=== PATIENT | female | born 1975 | race Caucasian/White ===

== ENCOUNTER → 2022-01-22 13:10 | Outpatient (CLI) | payer MEDICARE, MEDICAID, SELFPAY ==
--- NOTE | ~2022-01-22 | XR_ITS ---
XR_CERV2-3V_CR DATE: 01/22/2022 14:39 INDICATION: Cervical radiculopathy TECHNIQUE: Standing AP, open-mouth, odontoid and lateral views COMPARISON: None FINDINGS: There is straightening of the cervical spine. C1 and C2 are normally aligned and the odontoid process is intact. No fracture or dislocation or lock ed facet or prevertebral soft tissue swelling. There is moderately severe loss of interspace height at C6-7. IMPRESSION: Moderately severe degenerative disc disease at C6-C7 Straightening of the cervical spine Reviewed, dictated and finalized at [facility]. Reviewed, dictated and finalized at location A.
--- NOTE | ~2022-01-22 | XR_ITS ---
XR hip BI wo pelvis DATE: 01/22/2022 14:38 INDICATION: Hip pain TECHNIQUE: AP and lateral views of each hip COMPARISON: None FINDINGS: No fracture or dislocation, avascular necrosis or bone destruction of either hip. Joint spa zachariah are relatively preserved. The pubic symphysis and sacroiliac joints are intact. IMPRESSION: No significant abnormality of the hips Reviewed, dictated and finalized at location A.
--- NOTE | ~2022-01-22 | XR_ITS ---
XR thoracic spine 3V DATE: 01/22/2022 14:39 INDICATION: Thoracic back pain, radiculopathy TECHNIQUE: AP, lateral, swimmer views COMPARISON: None FINDINGS: Diffuse osteopenia. Minimal dextroscoliosis of the thoracic spine. There is mild to moderate degenerative spurring of the thoracic spine. No fracture or bone destruction. The thoracic pedicles are intact. No paraspinal soft tissue thickeni ng. IMPRESSION: Osteopenia Minimal dextro scoliosis Mild to moderate degenerative spurring Reviewed, dictated and finalized at location A.
--- NOTE | ~2022-01-22 | XR_ITS ---
XR knee LT 2V DATE: 01/22/2022 14:39 INDICATION: Left knee pain TECHNIQUE: Standing AP and lateral views COMPARISON: None FINDINGS: No fracture or dislocation or joint effusion. No periosteal reaction or bone destruction. Mild periarticular spurring of the patella. Joint spaces are relatively preserved. No radiopaque intr a-articular loose body or chondrocalcinosis. IMPRESSION: Mild patellofemoral osteoarthritis Reviewed, dictated and finalized at location A.
--- NOTE | ~2022-01-22 | XR_ITS ---
XR lumbar spine 2-3V DATE: 01/22/2022 14:39 INDICATION: Lumbar radiculopathy TECHNIQUE: AP, lateral, coned lateral lumbosacral views COMPARISON: None FINDINGS: No fracture or bone destruction. Included lower thoracic and lumbar pedicles are intact. Carmen mbar and lumbosacral interspaces appear well preserved. The sacroiliac joints appear normal. Status post cholecystectomy. IMPRESSION: No significant abnormality of lumbar spine Status post cholecystectomy Reviewed, dictated and finalized at location A.
--- NOTE | ~2022-01-22 | XR_ITS ---
XR knee RT 2V DATE: 01/22/2022 14:39 INDICATION: Right knee pain TECHNIQUE: Standing AP and lateral views COMPARISON: None FINDINGS: Diffuse osteopenia. No fracture or dislocation or joint effusion. No periosteal reaction or bone destruction. There is minimal periarticular spurring of the patella. Joint spaces are relatively preserved. Probable degenerative cyst of the medial aspect of the medial tibial plateau. No radiopaque intra-articular loose body or chondrocalcinosis. IMPRESSION: Mild osteoarthritis Osteopenia Reviewed, dictated and finalized at location A.
== END ==
PROVIDERS: PCP Internal Medicine Infectious Disease; Visit Provider Pain Medicine Interventional Pain Medicine
DX: M25.559 Pain in unspecified hip (principal); M25.569 Pain in unspecified knee; M54.17 Radiculopathy, lumbosacral region; M54.14 Radiculopathy, thoracic region; M54.12 Radiculopathy, cervical region; M17.0 Bilateral primary osteoarthritis of knee; M85.89 Other specified disorders of bone density and structure, multiple sites; M41.84 Other forms of scoliosis, thoracic region; M77.8 Other enthesopathies, not elsewhere classified; M50.323 Other cervical disc degeneration at C6-C7 level; M53.82 Other specified dorsopathies, cervical region; Z90.49 Acquired absence of other specified parts of digestive tract
CPT/HCPCS: 72040; 72072; 72100; 73521; 73560

== ENCOUNTER 2022-03-05 14:28 | Outpatient (CLI) | payer MEDICARE, MEDICAID, SELFPAY ==
--- NOTE | ~2022-03-05 | MR_ITS ---
EXAMINATION: MR lumbar spine wo con DATE: 03/05/2022 15:04 INDICATION: Lumbar radiculopathy. TECHNIQUE: Magnetic resonance imaging (MRI) of the lumbar spine was performed without intravenous con trast. Sequences included sagittal T2-weighted FSE, sagittal T2-weighted FS FSE, sagittal T1-weighted FSE, and axial T2-weighted FSE. COMPARISON: Lumbar spine MRI 01/13/2018 FINDINGS: There is 4 degrees dextrocurvature of thoracolumbar spine. Vertebral body heights are cristiano l. There is mildly decreased disc height at L4-L5. The distal spinal cord signal intensity is normal. The conus medullaris is at T12-L1. The following disc levels are specifically discussed: L1-L2: The disc does not extend beyond the endplate margin. There is mild bilateral facet joint osteo arthritis. There is no neural foraminal stenosis. There is no central canal stenosis. L2-L3: The disc does not extend beyond the endplate margin. There is mild bilateral facet joint osteo arthritis. There is no neural foraminal stenosis. There is no central canal stenosis. L3-L4: There is a left foraminal protrusion. There is mild bilateral facet joint osteoarthritis. Ther e is mild left neural foraminal stenosis. There is no central canal stenosis. L4-L5: The disc is bulging. There is mild bilateral facet joint osteoarthritis. There is mild bilater al neural foraminal stenosis. There is mild central canal stenosis. L5-S1: The disc does not extend beyond the endplate margins. There is severe right facet joint osteoa rthritis. There is no neural foraminal stenosis. There is no central canal stenosis. IMPRESSION: 1. Mild lumbar spondylosis, stable from 01/13/2018. Reviewed, dictated and finalized at location B.
== END 2022-03-05 14:29 | disposition home or self-care (01) ==
PROVIDERS: PCP Internal Medicine Infectious Disease; Visit Provider Pain Medicine Interventional Pain Medicine
DX: M47.22 Other spondylosis with radiculopathy, cervical region (principal); M17.9 Osteoarthritis of knee, unspecified; M16.9 Osteoarthritis of hip, unspecified; F41.1 Generalized anxiety disorder; G89.4 Chronic pain syndrome; E66.9 Obesity, unspecified; F31.62 Bipolar disorder, current episode mixed, moderate; M47.896 Other spondylosis, lumbar region
CPT/HCPCS: 72148

== ENCOUNTER → 2022-11-20 10:40 | Outpatient (CLI) | payer MEDICARE, MEDICAID, SELFPAY ==
--- NOTE | ~2022-11-20 | XR_ITS ---
EXAMINATION: XR lumbar spine 2-3V DATE: 11/20/2022 11:51 INDICATION: Lumbar radiculopathy TECHNIQUE: Anteroposterior and lateral views of the lumbar spine, and cone-down lateral view of the l umbosacral junction were obtained. COMPARISON: 01/22/2022 FINDINGS: Bone alignment is normal. There is no fracture. There is mild loss of intervertebral disc s pace height at L4-5 and L5-S1. There is severe facet joint osteoarthritis at L5-S1. Surgical clips in the right upper quadrant are likely from prior cholecystectomy. IMPRESSION: 1. Mild lumbar spondylosis without acute findings or significant interval change. Reviewed, dictated and finalized at location F. ABUSE TECHNICIAN IMPRESSION: 1. Mild lumbar spondylosis without acute findings or significant interval umanzor car
--- NOTE | ~2022-11-20 | XR_ITS ---
EXAMINATION:XR cervical spine 4-5V DATE: 11/20/2022 11:51 INDICATION: Neck pain TECHNIQUE: AP, lateral, lateral swimmers and odontoid views of the cervical spine are provided. COMPARISON: 01/22/2022 FINDINGS: There is 1 mm of anterolisthesis of C4 on C5. The odontoid process is intact. No fracture i s identified. The vertebral body heights are maintained. There is moderate to severe loss of interver tebral disc space height at C6-7. Prevertebral soft tissues are normal. IMPRESSION: 1. Mild cervical spondylosis without acute findings or significant interval change. Reviewed, dictated and finalized at location F. NITIES AND LANGUAGES PROFESSOR IMPRESSION: 1. Mild cervical spondylosis without acute findings or significant interval haven e.
== END ==
PROVIDERS: PCP Internal Medicine Infectious Disease; Visit Provider Pain Medicine Interventional Pain Medicine
DX: M47.27 Other spondylosis with radiculopathy, lumbosacral region (principal); M47.22 Other spondylosis with radiculopathy, cervical region
CPT/HCPCS: 72050; 72100

== ENCOUNTER → 2023-01-27 08:45 | Outpatient (CLI) | payer MEDICARE, MEDICAID, SELFPAY ==
--- NOTE | ~2023-01-27 | MR_ITS ---
MRI of the lumbar spine Clinical History: Radiculopathy Technique: Axial T2-weighted images, and sagittal T1-weighted, T2-weighted, and and T2 fat-sat images were acquired. Findings: There is no fracture or subluxation of the lumbar spine. Vertebral bodies maintain normal h eight and alignment. Probable intraosseous hemangioma within the L4 vertebral body. Mild diffuse hypo intense T1 signal could reflect underlying anemia. At L1-L2 and L2-L3, there is mild to moderate facet arthropathy without disc bulge or herniation. No spinal canal stenosis or neural foraminal narrowing at these levels. At L3-L4, there is no disc bulge or herniation. There is moderate facet arthropathy. No spinal canal stenosis or neural foraminal narrowing. At L4-L5, there is mild diffuse disc bulge with moderate facet arthropathy. No spinal canal stenosis. There is mild right neural foraminal narrowing. Left neural foramen preserved. At L5-S1, there is no disc bulge or herniation. There is moderate facet arthropathy. No spinal canal stenosis or neural foraminal narrowing. Paravertebral soft tissues are unremarkable. Impression: Minimal degenerative spondylosis, as above. Mild diffuse hypointense T1 marrow signal. Correlate for underlying anemia. Reviewed, dictated and finalized at [facility]. Impression: Minimal degenerative spondylosis, as above. Mild diffuse hypointense T1 marrow signal. Correlate for underlying anemia.
--- NOTE | ~2023-01-27 | MR_ITS ---
MRI of the cervical spine Clinical History: Radiculopathy Technique: Axial T2-weighted and gradient images, and sagittal T1-weighted, T2-weighted, and STIR franklyn ges were acquired. Findings: There is no fracture or subluxation of the cervical spine. Vertebral bodies maintain normal height and alignment. No bone marrow signal abnormality seen. At C2-C3, there is no disc bulge or herniation. No spinal canal stenosis, cord compression, or neural foraminal narrowing. At C3-C4, there is minimal disc ossify complex. No spinal canal stenosis, cord compression, or left n eural foraminal narrowing. Possible minimal right neural foraminal narrowing. At C4-C5, there is minimal disc osteophyte complex. No spinal canal stenosis, cord compression, or ne ural foraminal narrowing. At C5-C6, there is minimal disc ossify convex. There is possible minimal osseous canal stenosis. No c ord compression or neural foraminal narrowing evident. At C6-C7, there is minimal disc bulge. Possible mild central canal stenosis without melquiades cord compre ssion. Neural foramina are preserved. Paravertebral soft tissues are unremarkable. No abnormal signal seen in the spinal cord. Impression: Minimal degenerative change, as above. Reviewed, dictated and finalized at location . Impression: Minimal degenerative change, as above.
== END ==
PROVIDERS: PCP Internal Medicine Infectious Disease; Visit Provider Pain Medicine Interventional Pain Medicine
DX: M47.26 Other spondylosis with radiculopathy, lumbar region (principal); E66.9 Obesity, unspecified; F33.1 Major depressive disorder, recurrent, moderate; F41.1 Generalized anxiety disorder; G89.4 Chronic pain syndrome; M16.9 Osteoarthritis of hip, unspecified; M17.9 Osteoarthritis of knee, unspecified
CPT/HCPCS: 72141; 72148

== ENCOUNTER → 2023-04-14 15:07 | Outpatient (CLI) | payer MEDICARE, MEDICAID, SELFPAY ==
--- NOTE | ~2023-04-14 | XR_ITS ---
Thoracic spine: Clinical Indication: Radiculopathy AP and lateral views were performed. No fracture is seen. There is normal alignment of the vertebrae. The intervertebral disc spaces appe ar normal. Paravertebral soft tissues appear normal. Linear bibasilar pulmonary scarring or atelectas is present. Impression: No significant abnormalities noted. Reviewed, dictated and finalized at [facility]. Impression: No significant abnormalities noted.
== END ==
PROVIDERS: PCP Pain Medicine Interventional Pain Medicine; Visit Provider Pain Medicine Interventional Pain Medicine
DX: M47.22 Other spondylosis with radiculopathy, cervical region (principal); M17.9 Osteoarthritis of knee, unspecified; M16.9 Osteoarthritis of hip, unspecified; F31.62 Bipolar disorder, current episode mixed, moderate; E66.9 Obesity, unspecified
CPT/HCPCS: 72072

== ENCOUNTER 2024-03-08 18:09 | Observation (INO) | payer MEDICARE, MEDICAID, SELFPAY ==
[2024-03-08] VITALS (9 sets, daily range): BP systolic 111–127; BP diastolic 55–74; PULSE 67–88; RESP 18–26; TEMP 36.5–36.8; O2SAT 15–97; BMI 40.7
--- NOTE | ~2024-03-08 | MR_ITS ---
EXAMINATION: MR brain/brain stem wo con DATE: 03/10/2024 09:13 INDICATION: Seizure disorder. TECHNIQUE: Magnetic resonance imaging (MRI) of the brain and brainstem was performed without intraven ous contrast. COMPARISON: Head CT 03/08/2024, brain MRI 08/04/2006 FINDINGS: The hippocampi are normal and symmetric. There is no intracranial hemorrhage, acute infarct ion, or abnormal intracranial mass lesion. The ventricles are normal in size. There is mild mucosal t hickening in the paranasal sinuses. The orbits are normal. There is a left mastoid effusion. IMPRESSION: 1. Normal brain. Reviewed, dictated and finalized at location E. IMPRESSION: 1. Normal brain.
--- NOTE | ~2024-03-08 | CT_ITS ---
EXAMINATION: CT brain wo con DATE: 03/08/2024 20:53 INDICATION: Seizure TECHNIQUE: Computed tomography (CT) of the head was performed without intravenous contrast. Sagittal and coronal reconstructions were performed. The mA was adjusted according to patient size. Iterative reconstruction technique was employed. The dose-length product was 605.33 mGy-cm. COMPARISON: head CT dated 07/11/2006 and brain MR dated 08/04/2006 FINDINGS: No acute intracranial hemorrhage, acute infarction or abnormal extra axial fluid collection. Ventricl es are normal and symmetric. No mass/mass effect. Small left mastoid effusion. The orbitsand paranasa l sinuses are normal. IMPRESSION: 1. Normal brain. No acute intracranial process. Reviewed, dictated and finalized at location A.
--- NOTE | ~2024-03-08 | XR_ITS ---
EXAMINATION: XR chest 1V portable DATE: 03/08/2024 18:40 INDICATION: Seizure TECHNIQUE: AP view of the chest was obtained. COMPARISON: Chest radiograph dated 7 FINDINGS: Patient is rotated slightly towards the left. Mild linear discoid atelectasis the lateral left lower lung zone. There are mild bilateral infrahilar opacities. No pleural effusion or pneumothorax. The ca rdiomediastinal silhouette is within normal limits for AP technique. Visualized bones and soft tissue s are unremarkable. IMPRESSION: 1. Mild bilateral infrahilar opacities which given history is concern for aspiration pneumonitis or p neumonia. Reviewed, dictated and finalized at location A. IMPRESSION: 1. Mild bilateral infrahilar opacities which given history is concern for aspir ation pneumonitis or pneumonia.
--- NOTE | 2024-03-08 18:43 | ED.SEIZURE ---
HPI - Seizure General Chief Complaint: Seizure Stated Complaint: seizure Time Seen by Provider: 03/08/24 18:42 Source: family and EMS Mode of arrival: EMS Limitations: other (seizure) History of Present Illness HPI Narrative: This is a 48-year-old female that presents to the emergency department after several seizures today. No return to baseline in between. Patient has history of seizure disorder and reportedly takes Keppra. They do not believe she has missed any doses. Related Data Home Medications Medication Instructions Recorded Confirmed albuterol sulfate 90 mcg/actuation 2 puff inhalation Q4H PRN 04/07/21 03/09/24 aerosol inhaler Shortness Of Breath Or Wheezing pantoprazole 40 mg tablet,delayed 40 mg PO QAM 04/07/21 03/08/24 release sertraline 100 mg tablet (Zoloft) 100 mg PO HS 04/07/21 03/09/24 trazodone 100 mg tablet 100 mg PO QHS PRN Insomnia 04/07/21 03/09/24 baclofen 10 mg tablet 10 mg PO BID 04/09/21 03/08/24 ergocalciferol (vitamin D2) 50 mcg 50 mcg PO WEEKLY 04/09/21 03/09/24 (2,000 unit) capsule acetaminophen 300 mg-codeine 60 mg 1 tablet PO Q6H PRN Pain (Scale 01/26/23 03/08/24 tablet Score 4-6) mecobalamin (vitamin B12) 500 mcg 500 mcg PO DAILY 01/26/23 03/09/24 chewable tablet sucralfate 1 gram tablet 1 g PO BID 04/25/23 03/08/24 vitamin E (dl, acetate) 45 mg (100 45 mg PO DAILY 01/31/24 03/09/24 unit) capsule cetirizine 10 mg tablet (Zyrtec) 10 mg PO DAILY 03/08/24 03/09/24 montelukast 10 mg tablet 10 mg PO HS 03/08/24 03/09/24 gabapentin 100 mg capsule 100 mg PO HS 03/09/24 03/09/24 Allergies Allergy/AdvReac Type Severity Reaction Status Date / Time cephalexin Allergy Severe Rash Verified 03/08/24 18:30 ketorolac [From Toradol] Allergy Severe Seizure Verified 03/08/24 18:30 nicotine Allergy Severe seizures Verified 03/08/24 18:30 lamotrigine [From Lamictal] Allergy Intermediate Rash Verified 03/08/24 18:30 kiwi Allergy Mild Itching Verified 03/08/24 18:30 famotidine AdvReac Unknown Rash Verified 03/08/24 18:30 lansoprazole [From Prevacid] AdvReac Unknown Rash Verified 03/08/24 18:30 meloxicam AdvReac Unknown Blister Verified 03/08/24 18:30 Amitiza AdvReac Unknown Anaphylaxis Uncoded 03/08/24 18:30 Review of Systems Review of Systems: ROS unobtainable: Yes unobtainable due to mental status PMFSH Past Medical History Medical History (Updated 03/09/24 @ 14:48 by Sara Buck MD) Allergies Anemia Anxiety Arthritis Asthma Blood clotting disorder Chronic headaches Depression Eczema Epilepsy Fibromyalgia GERD (gastroesophageal reflux disease) IBS (irritable bowel syndrome) Knee dislocation Post hysterectomy menopause Sensitivity to sunlight Sleep apnea Stroke Tibia/fibula fracture 1999 Removal of hardware-2000 Surgical History Surgical History H/O breast biopsy BL 2020, 2021 H/O sinus surgery 2004 H/O wrist surgery Right 1994 H/O: hysterectomy 2001 Hx of cholecystectomy 2009 Previous section 1993, 1999 S/P thyroid biopsy 2016 Family History Family History Father Hypertension Depression Cerebrovascular accident Heart disease Mother Thyroid disorder Depression Cerebrovascular accident Hypertension Heart disease Sibling Asthma Lung cancer Brain cancer Cerebrovascular accident Hypertension Heart disease Depression Grandparent Cerebrovascular accident Other Breast cancer Social History Social History (Updated 03/09/24 @ 12:18 by Lisseth Esteves PA-C) Social History: Stopped in 2019 but smoked 1 pack a day for 35 years prior to this. Now she is an intermittent smoker. Smoking status: Former smoker Smoking end date: 05/28/19 Additional smoking assessment comments: JUST STARTED SMOKING IN LAST 24HRS Alcohol intake: never Substance use: never Substance use type: does not use Do
[2024-03-08] MEDS: MIDAZOLAM HCL (*CRX) 2 MG/2 ML VIAL 5 MG IM (18:44)
[2024-03-08 18:49] LABS: Basophils Absolute Auto 0.1 K/mm3 (0.0-0.1); Basophils Percent Auto 0.5 % (0.2-1.2); Eosinophils Absolute Auto 0.1 K/mm3 (0-0.3); Eosinophils Percent Auto 0.5 % (0-4.4); Hematocrit 38.3 % (37.0-47.0); Hemoglobin 12.4 g/dL (12.0-15.0); Immature Granulocyte Absolute 0.04 K/mm3 (0.00-0.031); Immature Granulocyte Percent A 0.4 % (0-0.5); Lymphocytes Absolute Auto 2.07 K/mm3 (0.9-3.2); Lymphocytes Percent Auto 18.8 % (18.3-44.2); Mean Corpuscular HGB Conc 32.4 g/dl (32-36); Mean Corpuscular Hemoglobin 29.7 pg (26-34); Mean Corpuscular Volume 91.8 fl (80-100); Mean Platelet Volume 9.2 fl (7.4-10.4); Monocytes Absolute Auto 0.5 K/mm3 (0.1-0.6); Monocytes Percent Auto 4.5 % (2.6-8.5); Neutrophils Absolute Auto 8.3 K/mm3 (1.3-6.7); Neutrophils Percent Auto 75.3 % (45.5-73.1); Platelet Count Result 350 k/mm3 (150-375); Red Blood Count 4.17 M/mm3 (4.2-5.4); Red Cell Distribution Width 13.9 % (11.5-14.5)
--- NOTE | 2024-03-08 18:56 | ECG_ITS ---
Test Date: 2024-03-08 18:47:27 Measurements Intervals [place] Rate: 89 P: 56 OR: 154 QRS: 0 QRSD: 110 T: 16 QT: 393 QTc: 479 Interpretive Statements SINUS RHYTHM NORMAL ECG No previous ECG available for comparison Electronically Signed On 03-09-2024 10:51:36 CDT by Salvador Jiménez M.D.
[2024-03-08 19:05] LABS: Alanine Aminotransferase 12 U/L (6-35); Albumin Level 3.9 g/dL (3.5-5.1); Alkaline Phosphatase 85 U/L (38-126); Anion Gap 6 mmol/L (4-12); Aspartate Amino Transferase 19 U/L (14-36); Bilirubin,Total 0.7 mg/dL (0.2-1.3); Blood Urea Nitrogen 4 mg/dL (7-17); Calcium 8.4 mg/dL (8.4-10.2); Carbon Dioxide 29 mmol/L (22-30); Chloride 104 mmol/L (98-107); Creatine Kinase 110 U/L (30-135); Estimated CRCL calculation 127 ml/min; Estimated Glomerular Filt Rate > 60; Glucose 100 mg/dL (65-110); Potassium 2.8 mmol/L (3.4-5.0); Sodium 139 mmol/L (137-145)
[2024-03-08 19:13] LABS: Appearance Urine Clear (Clear); Bilirubin Urine Negative (Negative); Blood Urine Negative (Negative); Color Urine Yellow (Yellow); Glucose Urine UA Negative (Negative); Ketones Urine Negative (Negative); Leukocyte Esterase Ur Negative LEU/UL (Negative); Nitrate Urine Negative (Negative); Protein Urine Negative (Negative); Specific Grav Ur 1.015 (1.001-1.035); Urobilinogen Urine 0.2 mg/dL (<2.0)
[2024-03-08 19:17] LABS: Add Urine Microscopic? NO
[2024-03-08 19:25] LABS: Glucose Point of Care 103 mg/dl (65-105)
[2024-03-08 19:35] LABS: Ethanol < 10 mg/dL (<10); Magnesium 1.8 mg/dL (1.6-2.3)
[2024-03-08 19:50] LABS: Amphetamine Screen Urine Negative (Negative); Barbiturate Screen Urine Negative (Negative); Benzodiazepines Screen Urine Positive (Negative); Cannabinoid Screen Urine Negative (Negative); Cocaine Screen Urine Negative (Negative); Methadone Screen Urine Negative (Negative); Opiate Screen Urine Positive (Negative); Phencyclidine Screen Urine Negative (Negative)
[2024-03-08] MEDS: levETIRAcetam 1500MG/NACL100ML 1,500 MG/100 ML BAG 400 MG IVPB ×2 (20:00→20:11)
[2024-03-08] MEDS: SODIUM CHLORIDE 0.9% IV 1,000 ML 999 ML IV CONT (20:05)
[2024-03-08] MEDS: POTASSIUM CHLORIDE INJ 40 MEQ in SODIUM CHLORIDE 0.9% IV 500 ML 130 MEQ IVPB (20:05)
[2024-03-08] MEDS: MEROPENEM 1 GM/NS 100 ML 1 GM/100 ML BAG IVPB (21:36)
--- NOTE | 2024-03-08 23:34 | ADMGEN ---
This patient, Lonnie Wells, was admitted to 2 Medical Room 257-01. Patient/family oriented to hospital policies and general routines including ID bracelet, bed and alarms, visiting hours, pain management, procedures, bathroom and other care routines, personal items, smoking policy, room service/diet, and visiting hours. Information on how to activate the Rapid Response Team has been discussed. Patient/Family are encouraged to report perceived risks to care and to ask questions if they do not understand what they are told or what they should do.
[2024-03-09] VITALS (9 sets, daily range): BP systolic 105–117; BP diastolic 50–56; PULSE 59–68; RESP 18; TEMP 36.4–36.7; O2SAT 92–96
--- NOTE | 2024-03-09 05:54 | PC.NURSE ---
pt complaining of pain this AM, this RN attempted to contact Dr at [phone]. This RN also attempted to contact at [phone]. No response, will relay information to day shift team RN and pt.
[2024-03-09] MEDS: CODEINE SULFATE (*CRX) 30 MG TABLET PO (06:37)
[2024-03-09] MEDS: ACETAMINOPHEN/CODEINE (*CRX) 300/30 MG TABLET 1 TAB PO (06:37)
[2024-03-09 08:27] LABS: Anion Gap 7 mmol/L (4-12); Blood Urea Nitrogen 3 mg/dL (7-17); Calcium 7.9 mg/dL (8.4-10.2); Carbon Dioxide 25 mmol/L (22-30); Chloride 106 mmol/L (98-107); Estimated CRCL calculation 132 ml/min; Estimated Glomerular Filt Rate > 60; Glucose 92 mg/dL (65-110); Potassium 3.2 mmol/L (3.4-5.0); Sodium 138 mmol/L (137-145)
[2024-03-09] MEDS: LORATADINE 10 MG TABLET PO (08:28)
[2024-03-09] MEDS: SUCRALFATE 1 GM TABLET PO ×2 (08:28→17:15)
[2024-03-09] MEDS: PANTOPRAZOLE 40 MG TABLET PO (08:28)
[2024-03-09] MEDS: BACLOFEN 10 MG TABLET PO (08:34)
[2024-03-09 08:52] LABS: Hemoglobin 11.4 g/dL (12.0-15.0); Mean Corpuscular HGB Conc 31.7 g/dl (32-36); Mean Corpuscular Hemoglobin 29.6 pg (26-34); Mean Corpuscular Volume 93.5 fl (80-100); Mean Platelet Volume 9.1 fl (7.4-10.4); Platelet Count Result 301 k/mm3 (150-375); Red Blood Count 3.85 M/mm3 (4.2-5.4); Red Cell Distribution Width 14.1 % (11.5-14.5); White Blood Count 9.4 K/mm3 (4.5-10.0)
[2024-03-09] MEDS: ACETAMINOPHEN/CODEINE (*CRX) 300/30 MG TABLET 2 TAB PO ×3 (11:00→23:26)
[2024-03-09] MEDS: levETIRAcetam 500 MG TABLET PO (11:00)
[2024-03-09] MEDS: levETIRAcetam 500 MG TABLET 1000 MG PO (11:00)
[2024-03-09] MEDS: POTASSIUM CHLORIDE 20 MEQ ER TABLET 40 MEQ PO (11:00)
--- NOTE | 2024-03-09 12:08 | PM.IMHP ---
H&P: HPI History of Present Illness Date/Time: 03/09/24 12:08 Chief Complaint: Seizure Narrative: This is a 48-year-old female with a past medical history of seizure disorder, asthma, fibromyalgia, chronic pain and tobacco user that presents to the hospital on 03/08/2024 due to active seizures. Patient received 2 mg of Ativan while in the ED and Neurology was called. Neurology recommended a head CT as well as loading 3 mg of Keppra. Patient was diagnosed with seizure disorder in [address] Johns as an outpatient. Her last seizure was a couple weeks ago and she says that she typically is well controlled. She states that she has had increased stress in her life and has recently broke up with her girlfriend and is in between house is right now. She has been staying with her daughter over the past couple days. She denies missing any of her medications and says that she takes her Keppra religiously. Vital signs in the ED: BP 111/69, pulse is 83, respirations 19, temp 98.2?, O2 sat 92 RA Workup in the ED: white count of 11.4, potassium of 2.8, chest x-ray with concern of aspiration pneumonitis or pneumonia. Patient does not have any symptoms at this time and will refrain from antibiotic initiation. Head CT no acute intracranial process. Neurology consulted. [facility] Past Medical History Medical History (Updated 03/09/24 @ 12:17 by Lisseth Esteves PA-C) Allergies Anemia Anxiety Arthritis Asthma Blood clotting disorder Chronic headaches Depression Eczema Fibromyalgia GERD (gastroesophageal reflux disease) IBS (irritable bowel syndrome) Knee dislocation Post hysterectomy menopause Sensitivity to sunlight Sleep apnea Stroke Tibia/fibula fracture 1999 Removal of hardware-2000 Surgical History Surgical History H/O breast biopsy BL 2020, 2021 H/O sinus surgery 2004 H/O wrist surgery Right 1994 H/O: hysterectomy 2002 Hx of cholecystectomy 2009 Previous section 1993, 1999 S/P thyroid biopsy 2016 Family History Family History Father Hypertension Depression Cerebrovascular accident Heart disease Mother Thyroid disorder Depression Cerebrovascular accident Hypertension Heart disease Sibling Asthma Lung cancer Brain cancer Cerebrovascular accident Hypertension Heart disease Depression Grandparent Cerebrovascular accident Other Breast cancer Social History Social History (Updated 03/09/24 @ 12:18 by Lisseth Esteves PA-C) Social History: Stopped in 2019 but smoked 1 pack a day for 35 years prior to this. Now she is an intermittent smoker. Smoking status: Former smoker Smoking end date: 05/28/19 Additional smoking assessment comments: JUST STARTED SMOKING IN LAST 24HRS Alcohol intake: never Substance use: never Substance use type: does not use Do You Feel Safe in your Home?: Yes Lack of Transportation: No Lack of Food: Never True Current Housing: I Have Housing Concerned About Future Housing: No Difficulty Paying Gas/Electric Bills: No Difficulty Paying for Meds: No Currently Unemployed: No Education: High School Diploma/GED Difficulty w/ Childcare or Family Care: No Spiritual care concerns: No Meds Home Medications and Allergies Home Medications Medication Instructions Recorded Confirmed Type albuterol sulfate 90 mcg/actuation 2 puff inhalation Q4H PRN 04/07/21 03/09/24 History aerosol inhaler Shortness Of Breath Or Wheezing pantoprazole 40 mg tablet,delayed 40 mg PO QAM 04/07/21 03/08/24 History release sertraline 100 mg tablet (Zoloft) 100 mg PO HS 04/07/21 03/09/24 History trazodone 100 mg tablet 100 mg PO QHS PRN Insomnia 04/07/21 03/09/24 History baclofen 10 mg tablet 10 mg PO BID 04/09/21 03/08/24 History ergocalciferol (vitamin D2) 50 mcg 50 mcg PO WEEKLY 04/09/21 03/09/24 Histo
--- NOTE | 2024-03-09 14:43 | WPDNEURCNPN ---
Assessment and Plan Assessment and plan (1) Epilepsy: Code(s): G40.909 - Epilepsy, unspecified, not intractable, without status epilepticus Status: Acute Plan the patient states that she has had at least 3 days of seizures in the last 1 year. She has never been fully controlled. The flurry of seizures occur despite her taking medications without any identifiable illness or trauma. She claims that she has been taking any medications and did not forget to take it. Based upon the history out suggest an MRI of the brain and EEG can be done as an outpatient and a increase her Keppra to 2000 mg twice a day and follow up in Neurology office in the next 1 or 2 months. I do not see any recent EEG done on her. She is that she was once in [facility] and was told that she had abnormal findings. His of these were not available. A CT scan of brain was performed on this admission which did not show any significant abnormality. Consult date: 03/09/24 HPI: Lonnie Wells is a 48 year old female History of seizure disorder since childhood presented to the emergency room after having had flurry of seizures. The description of this was not exactly available however patient has been on Keppra 1500 mg twice a day and was seen by Dr. Johns at Neurology office on 01/31/2024. the patient has been on many other medications the past but she thinks that this about has been the most effective medication that she is also able tolerate and function. In the past she was on gabapentin for pain that made her very drowsy if taken in the daytime. She is also on Keppra XR at 1 time that somehow also did not agree and did not work for her. Details are other medications not available. No history of any recent febrile illness or trauma. During the spells he does not think she had any other associated symptoms however she does have headache twice a month and she has a lifelong history of headache. Her sister had glioblastoma. Her mother and sister and 1 brother had headache. At this time she is feeling fairly well and denies any active symptoms. Review of Systems Review of Systems: All systems reviewed & are unremarkable except as noted in HPI and below PMFSH Past Medical History Medical History (Updated 03/09/24 @ 14:48 by Sara Buck MD) Allergies Anemia Anxiety Arthritis Asthma Blood clotting disorder Chronic headaches Depression Eczema Epilepsy Fibromyalgia GERD (gastroesophageal reflux disease) IBS (irritable bowel syndrome) Knee dislocation Post hysterectomy menopause Sensitivity to sunlight Sleep apnea Stroke Tibia/fibula fracture 2000 Removal of hardware-2000 Surgical History Surgical History H/O breast biopsy BL 2020, 2021 H/O sinus surgery 2004 H/O wrist surgery Right 1995 H/O: hysterectomy 2001 Hx of cholecystectomy 2009 Previous section 1993, 1999 S/P thyroid biopsy 2017 Family History Family History Father Hypertension Depression Cerebrovascular accident Heart disease Mother Thyroid disorder Depression Cerebrovascular accident Hypertension Heart disease Sibling Asthma Lung cancer Brain cancer Cerebrovascular accident Hypertension Heart disease Depression Grandparent Cerebrovascular accident Other Breast cancer Social History Social History (Updated 03/09/24 @ 12:18 by Lisseth Esteves PA-C) Social History: Stopped in 2019 but smoked 1 pack a day for 35 years prior to this. Now she is an intermittent smoker. Smoking status: Former smoker Smoking end date: 05/28/19 Additional smoking assessment comments: JUST STARTED SMOKING IN LAST 24HRS Alcohol intake: never Substance use: never Substance use type: does not use Do You Feel Safe in your Home?: Yes Lack of Transportation: No Lack of Food: Never True Current
[2024-03-09] MEDS: ALPRAZolam (*CRX) 0.5 MG TABLET PO (17:53)
[2024-03-09] MEDS: GABAPENTIN 100 MG CAPSULE PO (20:06)
[2024-03-09] MEDS: levETIRAcetam 500 MG TABLET 2000 MG PO (20:06)
[2024-03-09] MEDS: SERTRALINE HCL 50 MG TABLET 100 MG PO (20:06)
[2024-03-09] MEDS: MONTELUKAST SODIUM 10 MG TABLET PO (20:07)
[2024-03-10] VITALS: PULSE 53
[2024-03-10 04:00] VITALS: PULSE 57
[2024-03-10 04:40] LABS: Hemoglobin 11.6 g/dL (12.0-15.0); Mean Corpuscular HGB Conc 30.5 g/dl (32-36); Mean Corpuscular Hemoglobin 29.1 pg (26-34); Mean Corpuscular Volume 95.2 fl (80-100); Platelet Count Result 318 k/mm3 (150-375); Red Blood Count 3.99 M/mm3 (4.2-5.4); Red Cell Distribution Width 13.8 % (11.5-14.5)
[2024-03-10 04:51] LABS: Anion Gap 4 mmol/L (4-12); Blood Urea Nitrogen 4 mg/dL (7-17); Calcium 8.3 mg/dL (8.4-10.2); Carbon Dioxide 27 mmol/L (22-30); Chloride 107 mmol/L (98-107); Estimated CRCL calculation 132 ml/min; Estimated Glomerular Filt Rate > 60; Glucose 91 mg/dL (65-110); Potassium 3.4 mmol/L (3.4-5.0); Sodium 138 mmol/L (137-145)
[2024-03-10] MEDS: SUCRALFATE 1 GM TABLET PO (05:31)
[2024-03-10] MEDS: ACETAMINOPHEN/CODEINE (*CRX) 300/30 MG TABLET 2 TAB PO (05:42)
[2024-03-10 06:00] VITALS: BP 102/38; PULSE 60; RESP 18; TEMP 36.4; O2SAT 95
[2024-03-10 08:00] VITALS: PULSE 55
[2024-03-10] MEDS: LORATADINE 10 MG TABLET PO (09:39)
[2024-03-10] MEDS: BACLOFEN 10 MG TABLET PO (09:39)
[2024-03-10] MEDS: PANTOPRAZOLE 40 MG TABLET PO (09:39)
[2024-03-10] MEDS: levETIRAcetam 500 MG TABLET 2000 MG PO (09:39)
[2024-03-10 10:24] LABS: Levetiracetam Keppra 16.6 mcg/mL (6.0-46.0)
--- NOTE | 2024-03-10 11:50 | PM.DS ---
DS: Admitting Diagnosis Discharge Date 03/10/24 Admitting Diagnosis seizure activity DS: Discharge Diagnosis Discharge Diagnosis (1) Seizure: Code(s): R56.9 - Unspecified convulsions Status: Acute (2) Hypokalemia: Code(s): E87.6 - Hypokalemia Status: Acute (3) Chronic pain: Code(s): G89.29 - Other chronic pain Status: Acute DS: Summary Hospital Course Hospital Course: This is a 48-year-old female with a past medical history of seizure disorder, asthma, fibromyalgia, chronic pain and tobacco user that presents to the hospital on 03/08/2024 due to active seizures. Patient received 2 mg of Ativan while in the ED and Neurology was called. Neurology recommended a head CT as well as loading 3 mg of Keppra. Patient was diagnosed with seizure disorder in [address] Johns as an outpatient. Her last seizure was a couple weeks ago and she says that she typically is well controlled. She denies missing any of her medications and says that she takes her Keppra religiously. Workup in the ED: white count of 11.4, potassium of 2.8, chest x-ray with concern of aspiration pneumonitis or pneumonia. Patient does not have any symptoms at this time and will refrain from antibiotic initiation. Head CT no acute intracranial process. Neurology consulted. Potassium was replaced. Neurology recommending MRI. MRI with no acute intracranial process. Plan for outpatient EEG. Patient's Keppra was increased to 2000 mg b.i.d.. Keppra levels of 16.6. Patient alert and oriented on day of discharge. She is still slightly lethargic but is staying with her daughter for the time being. She states that she no longer drives due to seizure disorder. Plan for follow-up with Neurology as an outpatient. Her labs and vital signs are stable and she is medically clear for discharge at this time. Time Spent with Patient Time attestation: Total time spent providing and/or coordinating discharge services: Exam Narrative: GENERAL: Comfortable, no acute distress, lethargic, postictal HENMT: moist mucous membranes EYES: EOM intact b/l RESPIRATORY: clear to auscultation, no increased respiratory effort CARDIO: Regular rate and rhythm GI: soft, nontender, bowel sounds present SKIN/EXTREMITIES: no rashes, no edema, no redness or tenderness NEURO: PROM intact, answers questions appropriately, A&O x4, postictal state, bilateral upper and lower extremity strength 5/5, sensation intact, facial symmetry, denies hallucinations DS: Data Data Completed and Pending Labs on day of discharge: Labs from last 24 hours 03/10/24 03/08/24 04:15 20:13 WBC 9.0 RBC 3.99 L Hgb 11.6 L Hct 38.0 MCV 95.2 MCH 29.1 MCHC 30.5 L RDW 13.8 Plt Count 318 MPV 9.0 Sodium 138 Potassium 3.4 Chloride 107 Carbon Dioxide 27 Anion Gap 4 BUN 4 L Creatinine 0.60 L Estim Creat Clear Calc 132 Estimated GFR > 60 Glucose 91 Calcium 8.3 L Levetiracetam 16.6 Preliminary micro results at discharge 03/08/24 20:13 Blood Culture - Preliminary Blood 03/08/24 20:14 Blood Culture - Preliminary Blood Discharge Plan Discharge Consulting providers: Micki Johns Discharging Clinician: Lisseth Esteves Patient Disposition: Home, Self-Care Activity: other - see discharge instructions Diet: regular Discharge Instructions: Medications: Keppra 2000 mg BID Activities: Avoid hazardous activities such as mild climbing or scuba diving. Seizure under these conditions could lead to fatal accident. Do not swim alone or participate in other similar activities without others nearby. No driving Home care: Please take medication exactly as directed. Do not drink alcohol or use any medication without talking to primary care provider Where Medical Alert pendant are bracelet alert others to your condition. Joining local support group may help confidence and build moral. When to seek
[2024-03-10 12:00] VITALS: PULSE 56
[2024-03-10] MEDS: ALPRAZolam (*CRX) 0.5 MG TABLET PO (14:49)
== END 2024-03-10 14:58 | disposition home or self-care (01) ==
LOC: ANHED 20:10 → ANH2MED 23:04
PROVIDERS: Emergency Medicine; Internal Medicine Critical Care Medicine; Physician Assistant; Admitting Provider Internal Medicine; Emergency Provider Emergency Medicine; PCP Internal Medicine Infectious Disease; Visit Provider Internal Medicine
DX: G40.909 Epilepsy, unspecified, not intractable, without status epilepticus (principal); E87.6 Hypokalemia; F41.8 Other specified anxiety disorders; J45.909 Unspecified asthma, uncomplicated; K21.9 Gastro-esophageal reflux disease without esophagitis; Z87.891 Personal history of nicotine dependence; G89.29 Other chronic pain
CPT/HCPCS: 36415; 70450; 70551; 71045; 80048; 80053; 80177; 80307; 81003; 82550; 82948; 83735; 85025; 85027; 87040; 93005; 96365; 96372; 96375; 99285; A9270; G0378; J1953; J2185; J2250; J3480; J7030; J7040